=== PATIENT | female | born 1995 | race Hispanic/Latino ===

== ENCOUNTER 2019-11-19 09:29 | Emergency (ER) | payer SELFPAY ==
[~2019-11-19] VITALS: Ht 149.9 cm; Wt 49.4 kg
[~2019-11-19 09:29] MED LIST: PRENATAL TABLE1 EAC1 PO
--- OUTSIDE RECORDS SUMMARY | 2019-11-19 09:32 | XMS REPORT ---
Author Author [facility] Address Unknown Phone Unavailable Care Team Providers Care Senior Windows Administrator Name Role Phone Unavailable Unavailable Payers Payer Name Policy Type Policy Number Effective Date Expiration Date Problems This patient has no known problems. Allergies, Adverse Reactions, Alerts Allergy Name Allergy Type Status Severity Reaction(s) Onset Date Inactive Date Treating Clinician Comments No Known Allergies DA Active U 2018-07-09 00:00:00 No Known Allergies DA Active U 2018-06-19 00:00:00 Medications This patient has no known medications.
[2019-11-19 12:14] LABS: BILIRUBIN,URINE SMALL (NEGATIVE); COLOR,URINE YELLOW (YELLOW); KETONES,URINE NEGATIVE (NEGATIVE); LEUKOCYTE ESTERASE ,URINE NEGATIVE (NEGATIVE); NITRITE,URINE POSITIVE (NEGATIVE); PROTEIN,URINE DIPSTICK 2+ (NEGATIVE); URINE UROBILINOGEN 0.2 mg/dL (0.2 - 1)
[2019-11-19 12:15] LABS: CLARITY,URINE CLOUDY (CLEAR); PREGNANCY TEST, URINE NEGATIVE (NEGATIVE)
[2019-11-19 12:32] LABS: BACTERIA,URINE MODERATE /HPF; EPITHELIAL CELLS,URINE MANY /LPF; RBC,URINE >50 /HPF (0-5); WBC,URINE (MAN) >50 /HPF (0-5)
== END 2019-11-19 12:22 | disposition home or self-care (01) ==
LOC: ER 09:29
DX: R30.0 Dysuria (principal); N30.90 Cystitis, unspecified without hematuria
CPT/HCPCS: 81001; 81025; 99282